=== PATIENT | female | born 1955 | race Caucasian/White ===

== ENCOUNTER 2019-02-11 12:40 | Emergency (ER) | payer OTHER ==
[~2019-02-11] VITALS: Ht 162.6 cm; Wt 59.0 kg
[~2019-02-11 12:40] MED LIST: AMIO200T33 PO; DOXY-216 PEG; IBUP600T27 PO; KEP500T PO; LEVE250T18; LORA1TAB12 GT; POTA10TA51 PO; [UNRECOGNIZED DRUG - CODE] GT
[2019-02-11] MEDS ORDERED: GASTROGRAFIN 30 ML SOL ONE (16:15)
[2019-02-11 21:32] VITALS: BP 125/79
== END 2019-02-11 21:41 | disposition home or self-care (01) ==
LOC: EDBD 12:40 → ER 12:47
DX: K94.23 Gastrostomy malfunction (principal); J18.9 Pneumonia, unspecified organism; K21.9 Gastro-esophageal reflux disease without esophagitis; Z98.51 Tubal ligation status; Z88.1 Allergy status to other antibiotic agents; Z88.6 Allergy status to analgesic agent; Z87.442 Personal history of urinary calculi; Z79.899 Other long term (current) drug therapy
CPT/HCPCS: 43762; 71045; 74018; 99284; Q9963